=== PATIENT | female | born 1970 | race Caucasian/White ===

== ENCOUNTER 2023-07-20 12:27 | Outpatient (CLI) | payer OTHER, SELFPAY ==
--- NOTE | 2023-07-20 13:30 | W.ANESCHARGE ---
Anesthesia Charges Start Date/Time Anesthesia Start Date: 07/20/23 Anesthesia Start Time: 13:30 Stop Date/Time Anesthesia Stop Date: 07/20/23 Anesthesia Stop Time: 14:06
--- NOTE | 2023-07-20 14:10 | W.ANESCHARGE ---
Anesthesia Charges Start Date/Time Anesthesia Start Date: 07/20/23 Anesthesia Start Time: 13:30 Stop Date/Time Anesthesia Stop Date: 07/20/23 Anesthesia Stop Time: 14:06
== END 2023-07-20 12:28 | disposition home or self-care (01) ==
LOC: OP CLINIC 12:29
PROVIDERS: PCP Student in an Organized Health Care Education/Training Program; Visit Provider Internal Medicine Gastroenterology
DX: Z12.11 Encounter for screening for malignant neoplasm of colon (principal); K63.5 Polyp of colon; K62.1 Rectal polyp; K50.10 Crohn's disease of large intestine without complications
CPT/HCPCS: 00811; 45380; 45385; 88305; J2704

== ENCOUNTER 2024-11-22 08:00 | Outpatient (RCR) | payer BC, SELFPAY | END 2025-02-17 14:28 | disposition home or self-care (01) | PROVIDERS: PCP Student in an Organized Health Care Education/Training Program; Visit Provider Family Medicine | DX: M25.552 Pain in left hip (principal); M47.816 Spondylosis without myelopathy or radiculopathy, lumbar region; M76.02 Gluteal tendinitis, left hip; K50.10 Crohn's disease of large intestine without complications; M54.50 Low back pain, unspecified; Z51.89 Encounter for other specified aftercare | CPT/HCPCS: 97035; 97110; 97140; 97161 ==